=== PATIENT | male | born 1965 | race American Indian/Alaskan Native ===

== ENCOUNTER 2020-03-03 09:56 | Outpatient (CLI) | payer BC ==
--- NOTE | 2020-03-03 11:15 | Ultrasound Report ---
EXAMINATION: Left Limited Breast Ultrasound, 03/03/2020 INDICATION: Nodular density in the left upper outer quadrant on mammography. COMPARISON: Bilateral mammography 02/20/20. FINDINGS: Targeted ultrasound evaluation was performed of the area of interest. There is a small ashley ign-appearing lymph node at the 1:00 position 5 cm from the nipple. The lymph node has a thin cortex, an echogenic hilum and demonstrates normal hilar blood flow on Doppler exam. The lymph node measures 4.7 mm short axis and corresponds to the mammographically detected nodule. Moderate unilateral gynecomastia was noted on the left mammographically. IMPRESSION: 1. Small benign-appearing lymph node in the left upper outer quadrant. 2. Moderate unilateral gynecomastia on the left seen mammographically. Follow up recommendation: Clinical exam BI-RADS Category 2: Benign. Signer Name: Itz Moore MD Signed: 03/03/2020 11:11 AM Workstation Name: [id number]
== END 2020-03-03 09:57 | disposition home or self-care (01) ==
LOC: SPVWC 09:56
PROVIDERS: ATTEND Surgery
DX: N62 Hypertrophy of breast (principal); N63.21 Unspecified lump in the left breast, upper outer quadrant

== ENCOUNTER 2021-03-02 16:41 | Emergency (ER) | payer BC ==
[2021-03-02] MEDS ORDERED: KETOROLAC 30 MG/1 ML INJ IM ONE (18:20)
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
--- NOTE | 2021-03-02 18:53 | XRay Report ---
Cervical spine 3 views INDICATION: Neck pain IMPRESSION: No fracture or subluxation of the cervical spine is identified. No significant prevertebr al soft tissue edema is identified. Mild discogenic degenerative changes from C3-C4 through C5-C6. Signer Name: Alfredo Lantigua MD Signed: 03/02/2021 6:48 PM Workstation Name: [id number]
[2021-03-02 19:09] VITALS: BP 135/93
== END 2021-03-02 20:26 | disposition home or self-care (01) ==
LOC: ED 16:41
DX: S13.4XXA Sprain of ligaments of cervical spine, initial encounter (principal); M79.10 Myalgia, unspecified site; Z98.890 Other specified postprocedural states; Z79.1 Long term (current) use of non-steroidal anti-inflammatories (NSAID); Z79.899 Other long term (current) drug therapy; V49.49XA Driver injured in collision with other motor vehicles in traffic accident, initial encounter; Y93.89 Activity, other specified; Y92.410 Unspecified street and highway as the place of occurrence of the external cause; Y99.8 Other external cause status
CPT/HCPCS: 72040; 96372; 99283; J1885